=== PATIENT | female | born 1985 | race Two or more races ===

== ENCOUNTER 2024-07-29 18:50 | Emergency (ER) | payer OTHER ==
[~2024-07-29] VITALS: Ht 167.6 cm; Wt 68.0 kg
[2024-07-29 21:07] LABS: BASO % 0.2 % (0.1-1.2); EOS # 0.01 (0.04-0.54); EOS % 0.2 % (0.7-7.0); HEMATOCRIT 37.1 % (34.1-44.9); HEMOGLOBIN 12.2 g/dL (11.2-15.7); LYMPH # 0.93 (1.18-3.74); LYMPH % 16.8 % (19.3-53.1); MEAN CORPUSCULAR HEMOGLOBIN 28.2 pg (25.6-32.2); MONO # 0.48 (0.24-0.82); MONO % 8.7 % (4.7-12.5); NEUT # 4.08 (1.56-6.13); NEUT % 73.9 % (34.0-71.1); PLATELET COUNT 274 K/uL (163-369); RED BLOOD COUNT 4.33 M/uL (3.93-5.22); RED CELL DISTRIBUTION WIDTH 12.9 % (11.6-14.4)
[2024-07-29 21:26] LABS: INFLUENZA A AG POSITIVE (NEGATIVE); INFLUENZA B AG NEGATIVE (NEGATIVE)
[2024-07-29 21:36] LABS: ALBUMIN 3.5 gm/dL (3.4-5.0); BILIRUBIN TOTAL 0.55 mg/dL (0.3-1.2); CALCIUM 8.4 mg/dL (8.5-10.1); CREATININE SERUM 0.77 mg/dL (0.55-1.02); GFR 83.45; GLOBULINA 3.6 G/DL (2.4-3.5); POTASSIUM 3.85 mEq/L (3.5-5.1); TOTAL PROTEIN 7.1 gm/dL (6.4-8.2)
[2024-07-29] MEDS ORDERED: OSEL75CA PO (23:16)
[2024-07-29] MEDS ORDERED: GILTUSS COUGH-118 M1 PO (23:16)
[2024-07-29] MEDS ORDERED: ACETAMINOPHEN500 M1 PO (23:16)
[2024-07-29] MEDS ORDERED: CEPHALEXIN500 MG PO (23:16)
[2024-07-30] MEDS ORDERED: ACETAMINOPHEN 500 MG GEL..CAP PO ONE ×2 (00:15)
== END 2024-07-30 00:45 | disposition home or self-care (01) ==
LOC: ER 20:52
PROVIDERS: Preventive Medicine Public Health & General Preventive Medicine
DX: S01.511A Laceration without foreign body of lip, initial encounter (principal); W18.39XA Other fall on same level, initial encounter; Y93.89 Activity, other specified; Y92.89 Other specified places as the place of occurrence of the external cause; Y99.9 Unspecified external cause status; J10.1 Influenza due to other identified influenza virus with other respiratory manifestations; R55 Syncope and collapse